=== PATIENT | female | born 1995 | race Caucasian/White ===

== ENCOUNTER 2017-02-21 13:52 | Emergency (ER) | payer OTHER ==
[~2017-02-21] VITALS: Ht 160 cm; Wt 65.0 kg
[2017-02-21] MEDS ORDERED: LIDOCAINE HCL 1% 50 ML VIAL INFIL ONE (14:00)
[2017-02-21] MEDS ORDERED: BUPIVACAINE HCL PF 0.5% 10 ML VIAL INFIL ONE (14:00)
--- NOTE | 2017-02-21 14:15 | RADRPT ---
EXAM DATE/TIME: 02/21/2017 14:02 [place] COMPARISON: No previous studies available for comparison. INDICATIONS : Right hand, second digit laceration. Patient got finger caught in a car door. MEDICAL HISTORY : None. SURGICAL HISTORY : None. ENCOUNTER: Initial ACUITY: 1 day PAIN SCORE: 10/10 LOCATION: Right hand, second digit. FINDINGS: Examination of the second digit of the right hand demonstrates no evidence of fracture or dislocation . No radiopaque foreign bodies are seen. The soft tissues are intact. CONCLUSION: Negative. No fracture or foreign body. Daniel Durham MD on February 21, 2017 at 14:13 Board Certified Radiologist. This report was verified electronically.
--- NOTE | 2017-02-21 14:37 | PD ---
HPI Chief Complaint: Injury Time Seen by Provider: 13:57 Travel History International Travel<30 days: No Contact w/Intl Traveler<30days: No Traveled to known affect area: No History of Present Illness HPI 22-year-old female presents to the emergency room for evaluation of laceration to her right second finger that occurred just prior to arrival. Patient's HEENT accidentally closed her finger in her truck door. States the truck door closed all the way. She reports significant pain especially the site of the laceration. She has mild paresthesias around the laceration. Denies distal paresthesias. Tetanus is within 5 years. No chronic medical conditions or daily medications. PFSH Past Medical History Medical History: Denies Significant Hx ?: Not LMP: IRREGULAR Past Surgical History Surgical History: No Previous Surgery Social History Alcohol Use: Yes (OCC) Tobacco Use: No Substance Use: No Allergies-Medications (Allergen,Severity, Reaction): Coded Allergies: No Known Allergies (Unverified , 02/21/17) Reported Meds & Prescriptions Reported Meds & Active Scripts Active No Active Prescriptions or Reported Medications Review of Systems Except as stated in HPI: all other systems reviewed are Neg Physical Exam Narrative GENERAL: Well-nourished, well-developed female in no acute distress. Afebrile. Ambulatory. SKIN: Focused skin assessment warm/dry. There is a 1 cm laceration over the volar DIP joint. Nonbleeding. HEAD: Normocephalic. EYES: No scleral icterus. No injection or drainage. NECK: Supple, trachea midline. No JVD or lymphadenopathy. CARDIOVASCULAR: Regular rate and rhythm without murmurs, gallops, or rubs. RESPIRATORY: Breath sounds equal bilaterally. No accessory muscle use. MUSCULOSKELETAL: No cyanosis, or edema. Less than 2 second capillary refill distally. Full range of motion of right second finger. Strength 5/5. Data Data Orders Orders Finger ([id number]) (02/21/17 ) Lidocaine 1% Inj (50 Ml) (Xylocaine 1% I (02/21/17 14:00) Bupivacaine Pf 0.5% Inj (Marcaine Pf 0.5 (02/21/17 14:00) Ed Discharge Order (02/21/17 14:53) MDM Medical Decision Making Medical Screen Exam Complete: Yes Emergency Medical Condition: Yes Medical Record Reviewed: Yes Differential Diagnosis Laceration, crush injury, fracture, strain, contusion, injury Narrative Course 22-year-old otherwise healthy female presents to the emergency room for evaluation of laceration to her right second finger that occurred just prior to arrival. Patient accidentally slammed her finger in her truck door. Physical exam reveals a 1cm superficial laceration to the volar aspect of the right second finger over the DIP joint. It is not bleeding. No obvious neurovascular injury. Full range of motion. X-ray is negative. Wound was thoroughly cleansed and then repaired come see procedure note for details. Patient discharged with wound care instructions and told to follow-up with a primary care physician or return for worsening symptoms. She understands and agrees to plan. Procedures Procedure Narrative LACERATION LOCATION: Right second finger LENGTH: 1 cm NUMBER OF STITCHES/MATTEO: 1 simple interrupted REPAIR: The area of the laceration was prepped with Betadine and sterilely draped. The laceration was infiltrated with 1% lidocaine and 0.5% bupivacaine. The wound was copiously irrigated and explored without evidence of foreign body, tendon injury or neurovascular injury. The wound was closed using 5-0 Prolene. This was a single layer repair. A sterile dressing was applied. The patient was advised to keep the dressing clean and dry. Patient tolerated the procedure well. Diagnosis Primary Impression: Laceration of finger Qualified Codes: S61.210A - Laceration without foreign body of right index finger without damage to nail, initial encounter Referrals: Primary Care Physician Departure Forms: Tests/Procedures, Work Release Enter return to work date: Feb 22, 2017 Additional Instructions: Keep wound clean and dry. Apply triple antibiotic ointment daily. Sutures out in 7-10 days. Take ibuprofen with food as directed, as needed for pain. Apply ice to the affected area for 20 minutes at a time, as needed for pain and swelling. Follow-up with a primary care physician. Return to the emergency room for worsening symptoms. Med/Other Pt SpecificInfo: Prescription(s) given Scripts No Active Prescriptions or Reported Meds Disposition: 01 DISCHARGE HOME Condition: Stable Shruti Cota Feb 21, 2017 14:37
== END 2017-02-21 16:02 | disposition home or self-care (01) ==
LOC: NEPD 13:52
DX: S61.210A Laceration without foreign body of right index finger without damage to nail, initial encounter (principal); W23.0XXA Caught, crushed, jammed, or pinched between moving objects, initial encounter
CPT/HCPCS: 12001; 73140